=== PATIENT | female | born 1950 | race African-American/Black ===

== ENCOUNTER 2019-11-02 05:58 | Inpatient (IN) | payer OTHER ==
[2019-10-20 15:20] VITALS: BMI 31.1
[2019-11-02] MEDS ORDERED: TRANEXAMIC ACID 1000 MG/10 ML VIAL IVPUSH ONE (06:37)
[2019-11-02] MEDS ORDERED: VANCOMYCIN 1,000 MG in DEXTROSE 5%-WATER - 250 ML IVPB ONE (06:37)
[2019-11-02] MEDS ORDERED: CEFAZOLIN 2 GM in DEXTROSE 5%-WATER - 50 ML IVPB ONE (06:37)
[2019-11-02] MEDS ORDERED: EPINEPHrine/PF 1 MG/1 ML (1:1,000) AMPULE ONE (07:19)
[2019-11-02] MEDS ORDERED: MIDAZOLAM HCL 2 MG/2 ML SINGLE DOSE VIAL ONE ×3 (07:20→10:12)
[2019-11-02] MEDS ORDERED: BUPIVACAINE HCL/PF 0.5% (5 MG/ML) 30 ML VIAL IJ ONE (07:20)
[2019-11-02] MEDS ORDERED: ceFAZolin SODIUM 1 GM VIAL ONE (07:28)
[2019-11-02] MEDS ORDERED: SUCCINYLCHOLINE CHLORIDE 200 MG/10 ML SYRINGE ONE (07:28)
[2019-11-02] MEDS ORDERED: VANCOMYCIN 1,000 MG VIAL (RESTRICTED TO ID ONLY) ONE (07:28)
[2019-11-02] MEDS ORDERED: PROPOFOL 20 ML ONE ×3 (07:28→08:47)
--- NOTE | 2019-11-02 07:33 | HP ---
History & Physical Update - History History: No Change - Physical Physical: No Change - Assessment Assessment: No Change - Plan Plan: No Change (no changes since visit on 10/18/19- Patient for elective right THR)
[2019-11-02] MEDS ORDERED: BUPIVACAINE HCL/PF 0.5% (5MG/ML) 10 ML VIAL ONE (07:53)
[2019-11-02] MEDS ORDERED: METOPROLOL TARTRATE 5 MG/5 ML VIAL ONE (08:31)
[2019-11-02] MEDS ORDERED: ePHEDrine SULFATE 50 MG/1 ML AMPULE ONE (09:00)
[2019-11-02] MEDS ORDERED: BENZOIN/ALOE VERA/STORAX/TOLU 58 ML BOTTLE ONE (11:06)
[2019-11-02] MEDS ORDERED: MAG HYDROX/AL HYDROX/SIMETH 30 ML UNIT-DOSE CUP PO PRN (11:22)
[2019-11-02] MEDS ORDERED: ONDANSETRON 4 MG/2 ML VIAL IVPUSH PRN ×2 (11:22→12:03)
[2019-11-02] MEDS ORDERED: MAGNESIUM HYDROX 2400MG/30ML ORAL SUSPENSION 30 ML CUP PO PRN (11:22)
[2019-11-02] MEDS ORDERED: CYCLOBENZAPRINE HCL 10 MG TABLET (FP) PO PRN (11:26)
[2019-11-02] MEDS ORDERED: LACTATED RINGERS SOLUTION 1,000 ML IV SCH (11:30)
[2019-11-02] MEDS: INSULIN (NOVOLOG) ASPART 100 UNITS/ML 10ML VIAL SQ SCH (11:40)
[2019-11-02] MEDS ORDERED: PROMETHAZINE HCL 25 MG/1 ML VIAL IVPUSH PRN (12:03)
[2019-11-02] MEDS ORDERED: oxyCODONE HCL 5 MG TABLET PO PRN (12:03)
[2019-11-02] MEDS: ACETAMINOPHEN 325 MG TABLET (FP) PO SCH ×3 (12:25→23:46)
--- NOTE | 2019-11-02 15:36 | PN ---
Progress Note (short form) - Note Progress Note: 69F s/p RIGHT total hip replacement POD #0. -Pain control: per anaesthesia team. -DVT PPx: -Chemical: ASA 81mg PO BID x 6 weeks. -Mechanical: CATALINA's, SCD's. -Incentive spirometry q15 min. -PT/OT/Rehab, OOB. -WBAT RLE. -Post-op Ancef x 3 doses. -f/u post-op TOV: 8 hours max. -f/u AM labs. -Diet as tolerated. -Care per medical hospitalist team. -Discharge planning: f/u [facility] [place] [facility] 7-10 days; call for appointment . -Will follow. Akshat Joseph MD (Orthopaedic Surgery).
--- NOTE | 2019-11-02 15:38 | OP ---
Operative Note - Note: Operative Date: 11/02/19 Pre-Operative Diagnosis: Right hip DJD Operation: Right ELIECER Implants: [place]. Cup - Trident II-Triathlon, 58mm. Poly - 32mm, neutral. Stem - Accolade II, #4, 127 deg NSA. Head - 32mm, -4mm Biolox/Delta Ceramic Post-Operative Diagnosis: Same as Pre-op Surgeon: Onur Joseph Evs Tech: Akshat Joseph Anesthesiologist/CONSULTANTS INTERN: Theron Russ Anesthesia: Spinal Specimens Removed: Right femoral head Estimated Blood Loss (mls): 250 Fluid Volume Replaced (mls): 1,200 (Crystalloid) Operative Report Dictated: Yes
[2019-11-02] MEDS: CEFAZOLIN 1 GM/D5W 1 GM/50 ML BAG IVPB SCH ×2 (16:59→23:46)
--- NOTE | 2019-11-02 18:32 | HP ---
Documentation entered by Kitty Ledesma SCRIBE, acting as scribe for Kira Qiu NP. CHIEF COMPLAINT: Right hip pain HISTORY OF PRESENT ILLNESS: 69 year-old female with a PMH significant for HTN, Type II NIDDM, anemia, and right hip degenerative joint disease s/p right total hip arthroplasty today with Dr. Joseph. PAST MEDICAL HISTORY: Hypertension Type II NIDDM Anemia Degenerative joint disease PAST SURGICAL HISTORY: Cholecysgtectomy Salpingectomy Social History: , no children Smoking: never Alcohol: none Drugs: none Allergies No Known Allergies Allergy (Verified 10/20/19 15:08) HOME MEDICATIONS: Home Medications Medication Instructions Recorded Amlodipine Besylate [Norvasc -] 5 mg PO DAILY 10/20/19 Cholecalciferol (Vitamin D3) 2,000 unit PO DAILY 10/20/19 [Vitamin D3] Cyclobenzaprine HCl [Flexeril -] 10 mg PO BID PRN 10/20/19 Metformin HCl [Glucophage] 500 mg PO DAILY 10/20/19 Metoprolol Succinate [Toprol Xl] 50 mg PO DAILY 10/20/19 Oxycodone HCl/Acetaminophen 1 each PO TID PRN 10/20/19 [Oxycodon-Acetaminophen 7.5-325] REVIEW OF SYSTEMS CONSTITUTIONAL: Absent: fever, chills, diaphoresis, generalized weakness, malaise, loss of appetite, weight change HEENT: Absent: rhinorrhea, nasal congestion, throat pain, throat swelling, difficulty swallowing, mouth swelling, ear pain, eye pain, visual changes CARDIOVASCULAR: Absent: chest pain, syncope, palpitations, irregular heart rate, lightheadedness , peripheral edema RESPIRATORY: Absent: cough, shortness of breath, dyspnea with exertion, orthopnea, wheezing, stridor, hemoptysis GASTROINTESTINAL: Absent: abdominal pain, abdominal distension, nausea, vomiting, diarrhea, constipation, melena, hematochezia GENITOURINARY: Absent: dysuria, frequency, urgency, hesitancy, hematuria, flank pain, genital pain MUSCULOSKELETAL: +right hip pain Absent: myalgia, arthralgia, joint swelling, back pain, neck pain SKIN: Absent: rash, itching, pallor HEMATOLOGIC/IMMUNOLOGIC: Absent: easy bleeding, easy bruising, lymphadenopathy, frequent infections ENDOCRINE: Absent: unexplained weight gain, unexplained weight loss, heat intolerance, cold intolerance NEUROLOGIC: Absent: headache, focal weakness or paresthesias, dizziness, unsteady gait, seizure, mental status changes, bladder or bowel incontinence PSYCHIATRIC: Absent: anxiety, depression, suicidal or homicidal ideation, hallucinations. PHYSICAL EXAMINATION Vital Signs - 24 hr 11/02/19 11/02/19 11/02/19 06:39 11:42 11:45 Temperature 98.6 F 97.5 F L Pulse Rate 92 H 70 77 Respiratory 18 15 16 Rate Blood Pressure 142/88 104/65 114/69 O2 Sat by Pulse 100 100 Oximetry (%) 11/02/19 11/02/19 11/02/19 11:50 11:55 12:10 Temperature Pulse Rate 72 78 78 Respiratory 16 16 16 Rate Blood Pressure 108/76 110/67 118/73 O2 Sat by Pulse 98 98 98 Oximetry (%) 11/02/19 12:25 Temperature Pulse Rate 78 Respiratory 16 Rate Blood Pressure 119/60 O2 Sat by Pulse 98 Oximetry (%) GENERAL: Awake, alert, and fully oriented, in no acute distress. HEAD: Normal with no signs of trauma. EYES: Pupils equal, round and reactive to light, extraocular movements intact, sclera anicteric, conjunctiva clear. LUNGS: Breath sounds equal, clear to auscultation bilaterally. No wheezes, and no crackles. No accessory muscle use. HEART: Regular rate and rhythm, normal S1 and S2 ABDOMEN: Soft, nontender, not distended UPPER EXTREMITIES: 2+ pulses, warm, well-perfused. No cyanosis. No clubbing. No peripheral edema. LOWER EXTREMITIES: 2+ pulses, warm, well-perfused. No calf tenderness. No peripheral edema. Right hip surgical dressing c/d/i. No surrounding erythema or swelling. +flex/extend toes, sensory intact NEUROLOGICAL: Cranial nerves II-XII intact. Normal speech. Laboratory Results - last 24 hr 11/02/19 11/02/19 07:05 12:01 POC Glucometer 99 82 Pre op Hgb 12.5 BUN 13 Cr 0.9 Intra op Vanc 1g; Cefazolin 3g LR 1400cc EBL not recorded ASSESSMENT/PLAN: 69 year-old female with a PMH significant for HTN, Type II NIDDM, anemia, and right hip degenerative joint disease s/p right total hip arthroplasty today with Dr. Joseph. s/p Right total hip arthroplasty --POD #0 --perioperative antibiotics per surgery --pain management per surgery --ASA 81mg BID --protonix --bowel regimen --incentive spirometry FEN Fluids: LR@100mL/hr Electrolytes: replete as indicated Nutrition: diabetic diet DVT prophylaxis: OOB, ambulation, SCDs, TEDs, ASA 81mg BID Physical therapy Dispo: continues to require inpatient care. Full code. Visit type - Emergency Visit Emergency Visit: No - New Patient This patient is new to me today: Yes Date on this admission: 11/02/19 - Critical Care Critical Care patient: No Kira Qiu, DISH WASHER: This documentation has been prepared by the Baltazar khan Maria, SCRIBE, under my direction and personally reviewed by me in its entirety. I confirm that the documentation accurately reflects all work, treatment, procedures, and medical decision making performed by me.
[2019-11-02] MEDS ORDERED: VANCOMYCIN 1 GRAM (PRE-DOCKED) 1,000 MG/250 ML BAG IVPB ONE (19:00)
[2019-11-02] MEDS: SENNOSIDES/DOCUSATE COMBO (SENNA PLUS) TABLET (UD) PO SCH (21:29)
[2019-11-02] MEDS: ASPIRIN COATED 81 MG TABLET.EC PO SCH (21:29)
[2019-11-02] MEDS: oxyCODONE HCL 5 MG TABLET PO PRN (21:32)
[2019-11-03] MEDS: CEFAZOLIN 1 GM/D5W 1 GM/50 ML BAG IVPB SCH (05:48)
[2019-11-03] MEDS: ACETAMINOPHEN 325 MG TABLET (FP) PO SCH ×3 (05:48→18:25)
[2019-11-03] MEDS: oxyCODONE HCL 5 MG TABLET PO PRN ×2 (05:48→20:22)
[2019-11-03] MEDS ORDERED: metFORMIN HCL 500 MG TABLET (FP) PO SCH (07:00)
[2019-11-03] MEDS: INSULIN (NOVOLOG) ASPART 100 UNITS/ML 10ML VIAL SQ SCH ×4 (07:28→17:13)
--- NOTE | 2019-11-03 08:17 | PN ---
Progress Note (short form) - Note Progress Note: POD#1 PT without any CP/Nasuea or SOB. Voiding without difficulty.Pain relieved well with oral pain medications Vital Signs Period Temp Pulse Resp BP Sys/Quintanilla Pulse Ox Last 24 Hr 97.5 F-98.6 F 16-110 15-19 104-131/53-76 94-100 GEN: A&0x3, NAD, OOB to chair Right hip: dressing c/d/i. No masses or swelling noted/hip is soft to palpation LE: no calf tenderness or swelling noted b/l. CATALINA/SCDS in place Laboratory Tests //14 11//20 // 07:05 12:01 06:55 POC Glucometer 99 82 105 CBC, BMP 11/03/19 11:00 /07/15 17:30 A/P: 69 yo female s/p Right hip replacement, POD#1 OOB and ambulate with PT Pain managment as needed with oral pain meds DVT ppx with SCDs/CATALINA, Aspirin 81 mg BID D/w Dr. Joseph
--- NOTE | 2019-11-03 09:09 | OP ---
Date of Operation: 11/02/2019 Surgeon: Onur Joseph M.D. Contact Center Assistant: Akshat Joseph M.D., Dorothy Easley P.A.-C. Pre-Operative Diagnosis: Primary osteoarthritis right hip. Post-Operative Diagnosis: Primary osteoarthritis right hip. Surgical Procedure: Right total hip replacement via Direct Suprior approach. ( [id number]) Anaesthesia: Spinal, block. Position: Left lateral decubitus. Incision: Direct superior. Estimated Blood Loss: 250cc. Intravenous Fluid: 1.2L crystalloid. Specimens: Right femoral head. Drains: None. Complications: None. Urine output: None. Bacteriology: None. Transfusions: None. Closure: #1 Vicryl, 2-0 Biosyn. Indications: The patient was indicated for a right total hip replacement in order to facilitate improved motion and mobilization, and to prevent the complications associated with a sedentary lifestyle. The patient was identified in the holding area by her armband. A long discussion was held with the patient regarding the risks, benefits and alternatives of the above named procedure. Risks include but are not limited to : pain, bleeding, infection, damage to surrounding structures (including nerves , blood vessels, skin, ligaments, tendons and bone), wound complications, failure of hardware/implants/reduction, need for further surgery, blood clots, myocardial infarction, pulmonary embolism, cerebrovascular insult, anaesthesia complications, compartment syndrome, limb loss, limp, loss of function, and . Benefits as mentioned above. Alternatives include no surgery. All questions were answered. The patient understood and agreed to the procedure. Informed consent was obtained, witnessed and verified. The patients correct operative limb - that is the right lower extremity - was marked, and the patient was taken to the operating room after being seen by the anesthesia and nursing staff. Procedure: The patient was brought into the operating room, placed on the OR table and secured with a safety strap. Consent and the operative site were again verified with the patient and nursing and anaesthesia staff. Anaesthesia, IV antibiotics, and TXA were then administered without complication. A time out was done, led by me the attending surgeon. The patient was gently turned into the left lateral decubitus position. An axillary roll was placed. A Stulberg hip positioner with well-padded bolsters was used to secure the patient in the lateral decubitus position. The down arm was placed on a well-padded arm board. The up arm was brought across the patients body and placed on 2 pillows. Foam egg crates were placed under the down knee and ankle, and bony prominences were well padded. The operative site was then prepped and draped in the standard sterile fashion. Time out was again done and the case began. Operation: A standard Direct Superior surgical approach was utilized to access the hip joint. With a #10 blade, a skin incision was taken from the posterior-superior corner of the greater trochanter in a posterior-superior direction. This was approximately 10cm in length. Electrocautery was utilized to carry the deep dissection down to the level of the gluteus belen fascia. Hemostasis was assured using electrocautery (bipolar and unipolar). The gluteus belen fascia was incised, and the fibers of gluteus belen were in line with the trajectory of the incision. This confirmed the accuracy of our planned incision based on palpated landmarks and surface anatomy. A Sánchez elevator was used to split the distal fibers of gluteus belen, in line with the fibers, just proximal to their insertion into the iliotibial band. Great care was taken not to incise the iliotibial band. Gluteus belen fibers were split proximally using the Sánchez elevator until reaching the apex of the wound. Again, hemostasis was assured. The remington-capsular fat pad was exposed utilizing curved handle bar retractors. The remington-capsular fat pad was excised off the inferior border of the gluteus medius muscle belly, exposing the insertion of the hip short external rotator muscle group. The conjoined tendon was identified and freed from adhesions to the capsule using a 90-degree clamp. This tendon was then released from its insertion using electrocautery. The tendon was tagged with a # 2 Fiberwire suture and tied to the inferior aspect of the proximal wound apex. The tendon, thus, served as a sling to retract and protect the sciatic nerve. With the conjoined tendon reflected away from its insertion, the hip joint capsule was visualized. Electrocautery was used to perform a capsulotomy and synovial joint fluid was aspirated. Next, the superior leaflet of the capsule was elevated using a Sánchez elevator to create separation from the underlying labrum and also to create a plane for later placement of a supra-acetabular retractor. The labrum was excised using electrocautery. The hip was then gently dislocated. A standard femoral neck cut was made using an oscillating saw. A 3/4 " osteotome was delivered into the femoral head using mallet strikes. The femoral head was then removed. Anterior, inferior, and supra-acetabular retractors were placed to expose the acetabulum. The pulvinar was excised using electrocautery. Odd sized reamers were used to prepare the acetabular bone bed. Healthy blushes of bleeding were observed from the reamed cancellous bone bed. Next, a size 58mm Bedias Trident II-Tritanium cup was impacted into position, achieving excellent press-fit. A size 32mm neutral polyethylene liner was then impacted into the cup. Excellent placement of the polyethylene liner, and excellent press fit of the cup were confirmed. Next, attention was turned to femoral preparation. The anterior and supra-acetabular retractors were removed. The cut femoral neck was then exposed using the inferior acetabular retractor around the calcar, and a straight 90-degree retractor to retract gluteus medius. The box-cutter osteotome was used with a mallet to removed bone from the lateral femoral neck. An opening reamer was delivered by hand to find the femoral canal. A lateralizing reamer was used with power to lateralize the proximal entry into the canal, so as to avoid placing the stem into varus. The femoral bone bed was then prepared using broaches with gentle mallet strikes. The tibia was used as a goniometer with which to dial in approximately 5 degrees of stem anteversion. Trial components were assembled and the hip was reduced. The hip was taken through a full range of motion and proved stable throughout this range of motion, including at the extremes of positions of compromised. All trial femoral components were removed. Another 1g of IV Ancef was administered so that the bone bed would be rich with antibiotic at the time of seating of the femoral implant. A Bedias Accolade II (127-degree NSA, high offset) #4 stem was then implanted using gentle mallet strikes, diligently matching the prepared degree of stem anteversion. With the stem fully seated, a 32mm diameter, -4mm length ceramic/Biolox femoral head was then selected and implanted. The hip was once again reduced, and taken through a full range of motion. Stability was once again assured. Leg length was satisfactory. The wounds were copiously irrigated, as they had been regularly throughout the case so as to keep the retracted tissues wet, and in order to flush out wound debris. The capsule was primarily repaired using #1 Vicryl sutures in simple interrupted fashion. The tagged conjoined tendon was released and tied to the posterior-lateral corner of the greater trochanter. The remaining wounds were again irrigated. Hemostasis was assured and the wound was closed primarily using #1 Vicryl sutures. A 3-0 Biosyn suture was used to perform a subcuticular wound closure. A sterile, compressive dressing was applied. The sponge and needle counts were correct at the end of the case and the attending was present and scrubbed throughout the case. The patient was then transferred into a supine position and onto the hospital bed. A standard AP-pelvis x-ray was taken, demonstrating good overall alignment with a well reduced, congruent hip. There was no evidence of subsidence, loosening, or remington-prosthetic fracture. The patient was then was then transferred to the recovery room without incident/complications and in stable condition, having tolerated the procedure well. MD BESS Mccullough/[id number] MTDJerome
[2019-11-03] MEDS: ASPIRIN COATED 81 MG TABLET.EC PO SCH ×2 (09:40→21:18)
[2019-11-03] MEDS: PANTOPRAZOLE 40 MG TABLET (FP) PO SCH (09:40)
[2019-11-03] MEDS: MULTIVITAMINS (DAILY MVI) TABLET (FP) PO SCH (09:40)
[2019-11-03] MEDS: amLODIPine BESYLATE 5 MG TABLET (FP) PO SCH (09:40)
[2019-11-03] MEDS: SENNOSIDES/DOCUSATE COMBO (SENNA PLUS) TABLET (UD) PO SCH ×2 (09:40→21:18)
[2019-11-03 11:28] LABS: HEMOGLOBIN 9.9 GM/dl (10.7-15.3); MEAN CELL VOLUME 84.4 fl (80-96); MEAN PLT VOLUME 8.2 fl (7.5-11.1); PLATELET COUNT 294 K/MM3 (134-434); RBC 3.67 M/mm3 (3.60-5.2); RDW 13.5 % (11.6-15.6); WHITE BLOOD COUNT 14.3 K/mm3 (4.0-10.8)
--- NOTE | 2019-11-03 13:54 | PN ---
Documentation entered by Kitty Ledesma SCRIBE, acting as scribe for Kira Qiu NP. Physical Exam: SUBJECTIVE: Patient seen and examined oob to chair. Feels she did well with PT this morning. Pain is well-managed. OBJECTIVE: Vital Signs Period Temp Pulse Resp BP Sys/Quintanilla Pulse Ox Last 24 Hr 97.5 F-98.6 F 16-110 15-19 104-131/53-76 94-100 GENERAL: Awake, alert, and fully oriented, in no acute distress. LUNGS: Breath sounds equal, clear to auscultation bilaterally. No wheezes, and no crackles. No accessory muscle use. HEART: Regular rate and rhythm, normal S1 and S2 ABDOMEN: Soft, nontender, not distended UPPER EXTREMITIES: 2+ pulses, warm, well-perfused. No cyanosis. No clubbing. No peripheral edema. LOWER EXTREMITIES: 2+ pulses, warm, well-perfused. No calf tenderness. No peripheral edema. Right hip surgical dressing c/d/i. No surrounding erythema or swelling. +flex/extend toes, sensory intact NEUROLOGICAL: Cranial nerves II-XII intact. Normal speech. Active Medications Generic Name Dose Route Start Last Admin Trade Name Freq PRN Reason Stop Dose Admin Acetaminophen 650 mg 11/02/19 12:15 11/03/19 05:48 Tylenol - PO 11/05/19 12:14 650 mg Q6H WILLIE Administration Al Hydroxide/Mg Hydroxide 30 ml 11/02/19 11:22 Mylanta Oral Suspension - PO Q4H PRN DYSPEPSIA Amlodipine Besylate 5 mg 11/03/19 10:00 Norvasc - PO DAILY [facility] Aspirin 81 mg 11/02/19 22:00 11/02/19 21:29 Ecotrin - PO 81 mg BID WILLIE Administration Cyclobenzaprine HCl 10 mg 11/02/19 11:26 Flexeril - PO BID PRN MUSCLE SPASMS Insulin Aspart 0 units 11/02/19 11:30 11/03/19 07:46 Novolog Vial SQ Not Given TIDAC [facility] Protocol Magnesium Hydroxide 30 ml 11/02/19 11:22 Milk Of Magnesia - PO PRN PRN CONSTIPATION Metformin HCl 500 mg 11/03/19 07:00 11/03/19 07:29 Glucophage - PO 500 mg DAILY@0700 [facility] Administration Metoprolol Succinate 50 mg 11/03/19 10:00 Toprol Xl - PO DAILY [facility] Multivitamins/Minerals/Vitamin C 1 tab 11/03/19 10:00 Tab-A-Vit - PO DAILY WILLIE Ondansetron HCl 4 mg 11/02/19 11:22 Zofran Injection IVPUSH Q6H PRN NAUSEA Oxycodone HCl 5 mg 11/02/19 12:03 Roxicodone - PO Q3H PRN PAIN LEVEL 1-5 Oxycodone HCl 10 mg 11/02/19 12:03 11/03/19 05:48 Roxicodone - PO 10 mg Q3H PRN Administration PAIN LEVEL 6-10 Pantoprazole Sodium 40 mg 11/03/19 10:00 Protonix - PO DAILY WILLIE Senna/Docusate Sodium 2 tablet 11/02/19 22:00 11/02/19 21:29 Pericolace - PO 2 tablet BID WILLIE Administration Pre op Hgb 12.5 BUN 13 Cr 0.9 Intra op Vanc 1g; Cefazolin 3g LR 1400cc EBL not recorded ASSESSMENT/PLAN: 69 year-old female with a PMH significant for HTN, Type II NIDDM, anemia, and right hip degenerative joint disease s/p right total hip arthroplasty today with Dr. Joseph. s/p Right total hip arthroplasty --POD #1 --perioperative antibiotics complete --pain management per surgery --ASA 81mg BID --protonix --bowel regimen --incentive spirometry Hypertension --continue ToprolXL, amlodipine Type II NIDDM --metformin --Novolog sliding scale coverage Anemia --Hgb 9.9, pre-op 12.5 --repeat h/h in am FEN Fluids: PO intake adequate Electrolytes: replete as indicated Nutrition: diabetic diet DVT prophylaxis: OOB, ambulation, SCDs, TEDs, ASA 81mg BID Physical therapy Dispo: continues to require inpatient care. Full code. Visit type - Emergency Visit Emergency Visit: No - New Patient This patient is new to me today: No - Critical Care Critical Care patient: No Kira Qiu, ANIMAL GROOMER: This documentation has been prepared by the Baltazar khan Maria, SCRIBE, under my direction and personally reviewed by me in its entirety. I confirm that the documentation accurately reflects all work, treatment, procedures, and medical decision making performed by me.
--- NOTE | 2019-11-03 14:19 | PN ---
Progress Note (short form) - Note Progress Note: 69F POD1 s/p R THR under spinal anesthetic with peripheral nerve blocks for post operative pain relief. Pt states that pain is well controlled and reports no anesthetic complications. AVSS. Continue current regimen.
[2019-11-03 18:04] LABS: MAGNESIUM 1.8 mg/dL (1.8-2.4)
[2019-11-03 19:03] LABS: CALCIUM 8.9 mg/dl (8.5-10); CREATININE 0.8 mg/dl (0.55-1.3); POTASSIUM 4.1 mmol/L (3.5-5.1)
[2019-11-04] MEDS: ACETAMINOPHEN 325 MG TABLET (FP) PO SCH ×2 (00:10→06:25)
[2019-11-04] MEDS: INSULIN (NOVOLOG) ASPART 100 UNITS/ML 10ML VIAL SQ SCH (07:10)
[2019-11-04 07:56] LABS: HEMATOCRIT 30.2 % (32.4-45.2); HEMOGLOBIN 10.1 GM/dl (10.7-15.3); MCH 28.5 pg (25.7-33.7); MCHC 33.5 g/dl (32.0-36.0); MEAN CELL VOLUME 85.1 fl (80-96); MEAN PLT VOLUME 8.4 fl (7.5-11.1); PLATELET COUNT 301 K/MM3 (134-434); RBC 3.55 M/mm3 (3.60-5.2); RDW 13.4 % (11.6-15.6); WHITE BLOOD COUNT 10.4 K/mm3 (4.0-10.8)
[2019-11-04] MEDS: ASPIRIN COATED 81 MG TABLET.EC PO SCH (09:05)
[2019-11-04] MEDS: SENNOSIDES/DOCUSATE COMBO (SENNA PLUS) TABLET (UD) PO SCH (09:06)
[2019-11-04] MEDS: PANTOPRAZOLE 40 MG TABLET (FP) PO SCH (09:06)
[2019-11-04] MEDS: amLODIPine BESYLATE 5 MG TABLET (FP) PO SCH (09:06)
[2019-11-04] MEDS: MULTIVITAMINS (DAILY MVI) TABLET (FP) PO SCH (09:07)
--- NOTE | 2019-11-04 09:45 | PN ---
Progress Note (short form) - Note Progress Note: POD#2 Pt without any complaints. OOB with PT. Tolerating a diet. Pain managed with oral pain meds. Vital Signs Period Temp Pulse Resp BP Sys/Quintanilla Pulse Ox Last 24 Hr 97.5 F-98.6 F 16-110 15-19 104-131/53-76 94-100 GEN: A&0x3, NAD, OOB to chair Right hip: dressing c/d/i. No masses or swelling noted/hip is soft to palpation. No erythema. LE: no calf tenderness or swelling noted b/l. CATALINA/SCDS in place. 5/5 dorsi/ plantar flexion b/l. Laboratory Tests 01//11/04/19 16:52 06:56 POC Glucometer 117 108 CBC, BMP 11/04/19 07:33 11/03/19 17:30 A/P: 69 yo female s/p Right hip replacement, POD#2 OOB and ambulate with PT Pain managment as needed with oral pain meds DVT ppx with SCDs/CATALINA, Aspirin 81 mg BID D/w Dr. Joseph, plan for discharge to home today with PT services
--- NOTE | 2019-11-04 10:09 | DS ---
"Documentation entered by Kitty Ledesma SCRIBE, acting as scribe for Kira Qiu NP. Physical Exam: SUBJECTIVE: Patient seen and examined oob to chair. OBJECTIVE: Vital Signs Period Temp Pulse Resp BP Sys/Quintanilla Pulse Ox Last 24 Hr 97.8 F-100.2 F 91-100 18-20 104-125/59-68 96-99 PHYSICAL EXAM GENERAL: Awake, alert, and fully oriented, in no acute distress. LUNGS: Breath sounds equal, clear to auscultation bilaterally. No wheezes, and no crackles. No accessory muscle use. HEART: Regular rate and rhythm, normal S1 and S2 ABDOMEN: Soft, nontender, not distended UPPER EXTREMITIES: 2+ pulses, warm, well-perfused. No cyanosis. No clubbing. No peripheral edema. LOWER EXTREMITIES: 2+ pulses, warm, well-perfused. No calf tenderness. No peripheral edema. Right hip surgical dressing c/d/i. No surrounding erythema or swelling. +flex/extend toes, sensory intact NEUROLOGICAL: Cranial nerves II-XII intact. Normal speech. LABS Laboratory Results - last 24 hr 11/03/19 11/03/19 11/03/19 11:00 11:31 16:52 WBC 14.3 H RBC 3.67 Hgb 9.9 L Hct 31.0 L MCV 84.4 MCH 27.0 MCHC 32.0 RDW 13.5 Plt Count 294 MPV 8.2 Sodium Potassium Chloride Carbon Dioxide Anion Gap BUN Creatinine Est GFR (CKD-EPI)AfAm Est GFR (CKD-EPI)NonAf POC Glucometer 117 117 Random Glucose Calcium Magnesium 11/03/19 11/04/19 11/04/19 17:30 06:56 07:33 WBC 10.4 RBC 3.55 L Hgb 10.1 L Hct 30.2 L MCV 85.1 MCH 28.5 MCHC 33.5 RDW 13.4 Plt Count 301 MPV 8.4 Sodium 132 L Potassium 4.1 Chloride 102 Carbon Dioxide 22 Anion Gap 8 BUN 13.0 Creatinine 0.8 Est GFR (CKD-EPI)AfAm 86.57 Est GFR (CKD-EPI)NonAf 74.70 POC Glucometer 108 Random Glucose 126 H Calcium 8.9 Magnesium 1.8 HOSPITAL COURSE: Date of Admission:11/02/19 Date of Discharge: 11/04/19 69 year-old female with a PMH significant for HTN, Type II NIDDM, anemia, and right hip degenerative joint disease s/p right total hip arthroplasty today with Dr. Joseph. s/p Right total hip arthroplasty --perioperative antibiotics complete --pain well-managed with PO meds --ASA 81mg BID x 6 weeks Hypertension --continued ToprolXL, amlodipine Type II NIDDM --continued metformin --Novolog sliding scale coverage Anemia --h/h stable I Stop Data Detail Level: Printer-Friendly View Extended View Confidential Drug Utilization Report Search Terms: Shy Vega, 1950Search Date: 11/04/2019 10:08:54 AM The Drug Utilization Report below displays all of the controlled substance prescriptions, if any, that your patient has filled in the last twelve months. The information displayed on this report is compiled from pharmacy submissions to the Department, and accurately reflects the information as submitted by the pharmacies. This report was requested by: Kira Qiu | Reference #: [id number] There are no results for the search terms that you entered. Minutes to complete discharge: 35 Discharge Summary Problems reviewed: Yes Reason For Visit: TROCHANTERIC BURSITIS, RIGHT HIP Current Active Problems Arthritis of right hip (Acute) Condition: Good - Instructions Diet, Activity, Other Instructions: Dr. Joseph Discharge Instructions for Hip Replacement Post Operative Instructions Physical activity Physical Therapist will come to your home for the first 5 days. You will be set up with outpatient PT at your first post-operative visit. Use assistive devices for ambulation at all times. Weight bearing as tolerated on your surgical side. Wound care Leave your surgical dressing in place. Do not change the dressing until seen by your surgeon in the office. No baths or showers. Do not submerge your incision. Do not apply any ointments or lotions to your incision. Please call the office if your dressing is soiled/dirty or is falling off. Apply Graduated Compression Stockings (TEDS) to both lower extremities-remove daily for hygiene ONLY. Diet There are no dietary restrictions. Eat healthy, high-fiber foods. Drink 6 to 8 glasses of liquid each day. This will assist in keeping your bowels are regular. Pain management Any pain prescription medication ordered should be taken as prescribed for moderate to severe pain. Do not take additional Tylenol while taking Percocet. Posterior Hip Precautions: Do not cross the leg you had surgery on over your other leg. (Do not cross your legs.)Use an elevated toilet seat. Do not sit on low chairs or beds. Use purple pillow (abductor) when lying in bed. Take Aspirin 81 mg two times a day for a total of 6 weeks to prevent blood clots. Call Dr. Joseph for any of the following: Severe pain not relieved by medication Fever of 101 or higher Excessive bleeding or drainage on dressing Inability to urinate If you experience chest pain or shortness of breath, please seek emergency care immediately. Please call the office at to confirm your post-op appointment for the week following surgery. Referrals: Onur Joseph MD [Staff Physician] - Disposition: HOME - Home Medications Comprehensive Discharge Medication List: Ambulatory Orders Amlodipine Besylate [Norvasc -] 5 mg PO DAILY 10/20/19 Cholecalciferol (Vitamin D3) [Vitamin D3] 2,000 unit PO DAILY 10/20/19 Cyclobenzaprine HCl [Flexeril -] 10 mg PO BID PRN 10/20/19 Metformin HCl [Glucophage] 500 mg PO DAILY 10/20/19 Metoprolol Succinate [Toprol Xl] 50 mg PO DAILY 10/20/19 Oxycodone HCl/Acetaminophen [Oxycodon-Acetaminophen 7.5-325] 1 each PO TID PRN 10/20/19 Prescription Drug Monitoring Program (I-STOP) results: I-STOP reviewed and no issues identified This patient is new to me today: No Emergency Visit: No Critical Care patient: No - Discharge Referral Referred to [facility] Kira Mcfadden NP: This documentation has been prepared by the Baltazar khan Maria, SCRIBE, under my direction and personally reviewed by me in its entirety. I confirm that the documentation accurately reflects all work, treatment, procedures, and medical decision making performed by me."
[2019-11-04 13:53] VITALS: BP 99/64; PULSE 77; TEMP 97.9
--- NOTE | 2019-11-07 13:19 | PATH ---
Surgical Pathology Report Patient Name: FABIANA KONG Med. Rec. #: [id number] /Age/Gender: 1950 (Age: 69) / F Account: [id number] Location: [facility] Taken: 11/02/2019 Received: 11/02/2019 Reported: 11/07/2019 Physicians: Onur Joseph M.D. Specimen(s) Received RIGHT FEMORAL HEAD Clinical History Osteoarthritis right hip Final Diagnosis BONE AND SOFT TISSUE, RIGHT HIP, REPLACEMENT: DEGENERATIVE JOINT DISEASE. Electronically Signed Mario Constantino M.D. Gross Description Received in formalin, labeled "right femoral head," is a 4.8 x 4.6 x 3.6 cm. femoral head with a 0.3 cm in length portion of femoral neck attached. The margin of resection is smooth. There is a 3.2 cm greatest dimension area of eburnation present. The remaining articular surface is martini-yellow and diffusely nodular and granular. The underlying trabecular bone is yellow and focally softened. A technical account representative section is submitted in one cassette, following decalcification. /11/04/2019 [facility]11/04/2019
== END 2019-11-04 14:47 | disposition home or self-care (01) | DRG 470 ==
LOC: FM/S 05:58
PROVIDERS: ADMIT Orthopaedic Surgery Orthopaedic Surgery of the Spine; ATTEND Nurse Practitioner Acute Care
PROC: 0SR90JZ Replacement of Right Hip Joint with Synthetic Substitute, Open Approach (ICD-10-PCS; principal; 2019-11-02 09:18)
DX: M16.11 Unilateral primary osteoarthritis, right hip (principal); I10 Essential (primary) hypertension; E11.9 Type 2 diabetes mellitus without complications; D64.9 Anemia, unspecified
CPT/HCPCS: 36415; 73502-TC-RT-FY; 80048; 82962; 83735; 85027; 88304-TC; 88311-TC; 94760; 97116-GP; 97163-GP